=== PATIENT | male | born 1955 | race Caucasian/White ===

== ENCOUNTER → 2022-06-14 | Outpatient (CLI) | payer MEDICARE ==
[~2022-06-14] VITALS: Ht 195.6 cm; Wt 176.4 kg
== END ==
LOC: OPSV 14:19
DX: Z53.9 Procedure and treatment not carried out, unspecified reason (principal)
CPT/HCPCS: 96372; J0278

== ENCOUNTER → 2022-06-15 | Outpatient (CLI) | payer MEDICARE | LOC: EROP 06:42 → OPSV 07:00 | DX: Z53.9 Procedure and treatment not carried out, unspecified reason (principal) | CPT/HCPCS: 96372; J0278 ==

== ENCOUNTER → 2022-06-16 | Outpatient (CLI) | payer MEDICARE | LOC: EROP 06:21 → OPSV 07:00 | DX: Z53.9 Procedure and treatment not carried out, unspecified reason (principal) | CPT/HCPCS: 96372; J0278 ==

== ENCOUNTER → 2022-06-17 | Outpatient (CLI) | payer MEDICARE ==
[~2022-06-17] VITALS: Ht 195.6 cm; Wt 176.4 kg
== END ==
LOC: OPSV 14:40
DX: Z16.20 Resistance to unspecified antibiotic (principal)
CPT/HCPCS: 36415; 80150; 96372; J0278

== ENCOUNTER → 2022-06-18 | Outpatient (CLI) | payer MEDICARE ==
[~2022-06-18] VITALS: Ht 195.6 cm; Wt 176.4 kg
== END ==
LOC: OPSV 13:50
DX: Z53.9 Procedure and treatment not carried out, unspecified reason (principal)
CPT/HCPCS: 96372; J0278

== ENCOUNTER → 2022-06-19 | Outpatient (CLI) | payer MEDICARE ==
[~2022-06-19] VITALS: Ht 195.6 cm; Wt 176.4 kg
== END ==
LOC: OPSV 13:27
DX: Z16.20 Resistance to unspecified antibiotic (principal)
CPT/HCPCS: 96372; J0278

== ENCOUNTER → 2022-06-20 | Outpatient (CLI) | payer MEDICARE ==
[~2022-06-20] VITALS: Ht 195.6 cm; Wt 176.4 kg
== END ==
LOC: OPSV 09:35
DX: Z53.9 Procedure and treatment not carried out, unspecified reason (principal)
CPT/HCPCS: 96372; J0278